=== PATIENT | female | born 1945 | race Caucasian/White ===

== ENCOUNTER → 2019-06-25 | Outpatient (CLI) | payer MEDICARE, OTHER ==
[~2019-06-25] MED LIST: BUPR150T2; CIPR500 PO; CONEST.9; DIOVAN HCT; DIPH50; FLUO20; HYDACE10B PO; HYDACE5; LEVSOD100; NORETHINDRONE; OXYACE7.5T PO; SULTRIDS; WARF7.5; [UNRECOGNIZED DRUG - REMARK]; [UNRECOGNIZED DRUG - REMARK]
== END | disposition home or self-care (01) ==
LOC: LAB EV 11:15 → LAB SHORT 11:15
DX: R30.0 Dysuria (principal); R30.9 Painful micturition, unspecified
CPT/HCPCS: 87077; 87086; 87186

== ENCOUNTER → 2019-08-27 | Outpatient (CLI) | payer MEDICARE, OTHER ==
[2019-08-27 15:19] LABS: Source, Urine Clean Catch
[2019-08-27 16:46] LABS: Bacteria Few /hpf; Red Blood Cells, Urine 0-2 /hpf (0-2); Squamous Epithelial Cells Few /hpf (Few); White Blood Cells, Urine 0-2 /hpf (0-5)
== END | disposition home or self-care (01) ==
LOC: OLS 15:17 → LAB SHORT 15:17
PROVIDERS: Physician Assistant
DX: N39.0 Urinary tract infection, site not specified (principal)
CPT/HCPCS: 81015

== ENCOUNTER 2019-12-10 08:26 | Day surgery (SDC) | payer MEDICARE, OTHER | END 2019-12-10 22:42 | disposition home or self-care (01) | LOC: MOI US 08:26 → MOI MAM 04-11 09:00 | DX: N64.1 Fat necrosis of breast (principal) | CPT/HCPCS: 19083; 19084; 77065; 88305; 88341; 88342; A4648 ==

== ENCOUNTER 2020-12-28 06:37 | Emergency (ER) | payer MEDICARE, OTHER ==
[~2020-12-28] VITALS: Ht 160 cm; Wt 64.4 kg
[2020-12-28 07:27] LABS: BASOPHILS ABSOLUTE AUTO 0.02 K/mm3 (0.00-0.23); BASOPHILS PERCENT AUTO 0 % (0-2); EOSINOPHILS ABSOLUTE AUTO 0.02 K/mm3 (0.00-0.68); EOSINOPHILS PERCENT AUTO 0 % (0-6); Hematocrit 41.9 % (33.0-51.0); Hemoglobin 14.3 g/dL (11.5-16.0); IMMATURE GRAN ABSOLUTE AUTO 0.02 K/mm3 (0.00-0.10); IMMATURE GRAN PERCENT AUTO 0 % (0-1); LYMPHOCYTES ABSOLUTE AUTO 1.09 K/mm3 (0.84-5.20); LYMPHOCYTES PERCENT AUTO 11 % (21-46); MONOCYTES ABSOLUTE AUTO 0.45 K/mm3 (0.16-1.47); MONOCYTES PERCENT AUTO 4 % (4-13); Mean Corpuscular HGB 29.4 pg (26.0-34.0); Mean Corpuscular HGB Conc 34.1 g/dL (31.5-36.5); Mean Corpuscular Volume 86 fL (80-100); Mean Platelet Volume 10.1 fL (9.1-12.4); NEUTROPHILS ABSOLUTE AUTO 8.72 K/mm3 (1.96-9.15); NEUTROPHILS PERCENT AUTO 84 % (41-73); Platelet Count 261 K/mm3 (150-400); RDW Coefficient Variation 13.2 % (11.7-14.2); RDW Standard Deviation 40.7 fL (35.1-46.3); Red Blood Cell Count 4.87 M/mm3 (3.80-5.20); White Blood Cell Count 10.32 K/mm3 (4.00-11.30)
[2020-12-28] MEDS ORDERED: AMLO5 PO (07:34)
[2020-12-28] MEDS ORDERED: Aspir 8181 MG PO (07:35)
[2020-12-28] MEDS ORDERED: ANORO ELLIPTA1 EACH INH (07:36)
[2020-12-28] MEDS ORDERED: OMEP20ER PO (07:37)
[2020-12-28] MEDS ORDERED: Lisinopril-Hct1 EAC4 PO (07:37)
[2020-12-28] MEDS ORDERED: CLOB.05TO (07:37)
[2020-12-28 07:52] LABS: Alanine Aminotransfer (ALT/SGP 44 U/L (12-78); Albumin, Blood 3.7 g/dL (3.4-5.0); Albumin/Globulin Ratio 0.9 (0.8-1.8); Alk Phos 99 U/L (50-136); Anion Gap 10 mmol/L (6-16); Aspartate Aminotrans (AST/SGOT 32 U/L (12-37); Bilirubin, Total 0.6 mg/dL (0.1-1.0); Blood Urea Nitrogen 14 mg/dL (8-24); Bun/Creatinine Ratio 19.8 (12.0-20.0); CO2, Blood 20 mmol/L (21-32); Calcium, Blood 9.4 mg/dL (8.5-10.1); Chloride, Blood 109 mmol/L (98-108); Creatinine, Blood 0.71 mg/dL (0.40-1.00); Globulin, Blood 3.9 g/dL (2.2-4.0); Glomerular Filtration Rate >60 (60-); Glucose, Blood 181 mg/dL (70-99); Potassium, Blood 3.2 mmol/L (3.5-5.5); Sodium, Blood 139 mmol/L (136-145); Total Protein, Blood 7.6 g/dL (6.4-8.2)
[2020-12-28] MEDS ORDERED: LOPE2C PO (08:17)
[2020-12-28] MEDS ORDERED: ONDA4ODT MM (08:17)
== END 2020-12-28 09:10 | disposition home or self-care (01) ==
LOC: ER 06:37
PROVIDERS: Emergency Medicine
DX: K52.9 Noninfective gastroenteritis and colitis, unspecified (principal); E87.6 Hypokalemia; I10 Essential (primary) hypertension; E03.9 Hypothyroidism, unspecified; Z79.899 Other long term (current) drug therapy
CPT/HCPCS: 36415; 80053; 85025; 96374; 96375; 99284-25; A9270; J1885; J2405; J7030

== ENCOUNTER → 2021-01-30 | Outpatient (CLI) | payer MEDICARE, OTHER ==
[~2021-01-30] MED LIST changes: +AMLO5 PO; +ANORO ELLIPTA1 EACH INH; +Aspir 8181 MG PO; +CLOB.05TO; +LOPE2C PO; +Lisinopril-Hct1 EAC4 PO; +OMEP20ER PO; +ONDA4ODT MM
[2021-02-05 17:10] LABS: HPV 16 Negative (Negative); HPV 18 Negative (Negative); HPV OTHER HR TYPES Negative (Negative)
== END | disposition home or self-care (01) ==
LOC: LAB 11:24 → LAB SHORT 11:24
PROVIDERS: Obstetrics & Gynecology
DX: Z01.419 Encounter for gynecological examination (general) (routine) without abnormal findings (principal); M87.9 Osteonecrosis, unspecified
CPT/HCPCS: 87624; G0123

== ENCOUNTER → 2021-03-21 | Outpatient (CLI) | payer MEDICARE, OTHER ==
[2021-03-21 12:32] LABS: Protein, Urine Quantitative <5.0 mg/dL (0.0-11.9)
== END | disposition home or self-care (01) ==
LOC: LAB 10:55 → LAB SHORT 10:55
PROVIDERS: Internal Medicine
DX: I10 Essential (primary) hypertension (principal)
CPT/HCPCS: 81050; 84156

== ENCOUNTER 2024-05-07 16:18 | Inpatient (IN) | payer MEDICARE ==
[~2024-05-07] VITALS: Ht 157.5 cm; Wt 62.2 kg
[~2024-05-07 16:18] MED LIST changes: +FLUO10 PO; +LEVSOD100 PO
[2024-05-07] MEDS ORDERED: Ondansetron HCl 2 MG / ML 2ML Vial IV PRN (17:20)
[2024-05-07 17:46] LABS: Albumin, Blood 3.6 g/dL (3.4-5.0); Albumin/Globulin Ratio 0.9 (0.8-1.8); Bilirubin, Total 0.6 mg/dL (0.1-1.0); Bun/Creatinine Ratio 23.4 (12.0-20.0); Calcium, Blood 9.3 mg/dL (8.5-10.1); Creatinine, Blood 0.6 mg/dL (0.40-1.00); Globulin, Blood 3.9 g/dL (2.2-4.0); Potassium, Blood 2.8 mmol/L (3.5-5.5); Total Protein, Blood 7.5 g/dL (6.4-8.2)
[2024-05-07] MEDS ORDERED: Potassium Chloride 20 MEQ TabCR PO ONE (17:55)
[2024-05-07] MEDS ORDERED: Potassium Chl 20MEQ/Water100ML 100 ML IV ONE (17:55)
[2024-05-07] MEDS ORDERED: LORazepam 2 MG/ML 1ML Injection IV ONE (17:55)
[2024-05-07] MEDS ORDERED: Mag Sulfate 1 GM/D5% 100ML 100 ML IV ONE (18:00)
[2024-05-07 18:02] LABS: BASOPHILS ABSOLUTE AUTO 0.02 K/mm3 (0.00-0.23); BASOPHILS PERCENT AUTO 0 % (0-2); EOSINOPHILS ABSOLUTE AUTO 0.03 K/mm3 (0.00-0.68); EOSINOPHILS PERCENT AUTO 0 % (0-6); Hematocrit 39.2 % (33.0-51.0); Hemoglobin 13.5 g/dL (11.5-16.0); IMMATURE GRAN ABSOLUTE AUTO 0.04 K/mm3 (0.00-0.10); IMMATURE GRAN PERCENT AUTO 0 % (0-1); LYMPHOCYTES ABSOLUTE AUTO 2.09 K/mm3 (0.84-5.20); LYMPHOCYTES PERCENT AUTO 22 % (21-46); MONOCYTES ABSOLUTE AUTO 0.57 K/mm3 (0.16-1.47); MONOCYTES PERCENT AUTO 6 % (4-13); Mean Corpuscular HGB 29.7 pg (26.0-34.0); Mean Corpuscular HGB Conc 34.4 g/dL (31.5-36.5); Mean Corpuscular Volume 86 fL (80-100); Mean Platelet Volume 10.6 fL (9.1-12.4); NEUTROPHILS ABSOLUTE AUTO 6.73 K/mm3 (1.96-9.15); NEUTROPHILS PERCENT AUTO 71 % (41-73); Platelet Count 304 K/mm3 (150-400); RDW Coefficient Variation 14.3 % (11.7-14.2); RDW Standard Deviation 44.5 fL (35.1-46.3); Red Blood Cell Count 4.54 M/mm3 (3.80-5.20); White Blood Cell Count 9.48 K/mm3 (4.00-11.30)
[2024-05-07] MEDS ORDERED: Prochlorperazine Edisylate 10 mg Vial IV ONE (19:35)
[2024-05-07] MEDS ORDERED: Mag Sulfate 1 GM/D5% 100ML 100 ML IV STA (20:45)
[2024-05-07] MEDS ORDERED: Potassium Chl 20MEQ/Water100ML 100 ML IV SCH (20:50)
[2024-05-07] MEDS ORDERED: NS 1,000 ML IV SCH (21:05)
[2024-05-07] MEDS ORDERED: Metoprolol Tartrate 1 MG/ML 5 ML VIAL IV ONE (21:05)
[2024-05-07] MEDS ORDERED: FLU VACC TS2024-25(6MOS UP)/PF 45 MCG/0.5 ML SYRINGE IM SCH (22:25)
[2024-05-07] MEDS ORDERED: Enoxaparin 40 MG/0.4 ML SYR SC SCH (23:00)
[2024-05-08 00:33] VITALS: BP 148/63
[2024-05-08] MEDS ORDERED: Prinivil10 MG PO (00:39)
[2024-05-08] MEDS ORDERED: TRAZ100 PO (00:40)
[2024-05-08] MEDS ORDERED: HYDSUL200 PO (00:41)
--- NOTE | 2024-05-08 01:48 | NUR ---
ARRIVAL TO PCU AFTER RECEIVING REPORT FROM ED RN, PATIENT TRANSFERRED TO PCU AT APPROX 0015. PATIENT TRANSFERRED TO BED VIA SLIDER SHEET, IS BED MOBILE. ASSISTS WITH TURNS AND REPOSITIONS HERSELF WITH MINIMAL TO NO ASSIST FROM STAFF. AMBULATORY AT BASELINE. ANSWERS ORIENTATION QUESTIONS. PERRLA. MOVES ALL EXTREMITIES EQUALLY. TELEMETRY SHOWING SINUS 60s. BP STABLE, SBP 140s. DENIES CHEST PAIN, PRESSURE. ON 2L VIA NC, SATs >90%. RR EVEN, UNLABORED. DENIES SHORTNESS OF BREATH. DOES REPORT MILD NAUSEA. NAUSEA/VOMITING X2 WEEKS - UNABLE TO TOLERATE PO INTAKE. REPORTS >10LB WEIGHT LOSS. ABD SOFT, NONTENDER. HYPOACTIVE BOWEL TONES. CALL LIGHT IN REACH.
[2024-05-08] MEDS ORDERED: Loperamide HCl 2 MG Cap PO PRN (02:05)
[2024-05-08] MEDS ORDERED: Bismuth Subsalicylate 262 MG Chew PO PRN (02:35)
[2024-05-08 03:16] VITALS: BP 92/71
[2024-05-08 03:27] VITALS: BP 125/66
[2024-05-08 03:37] LABS: Source, Urine Clean Catch
[2024-05-08 03:43] LABS: Bilirubin, Urine Neg (Neg); Blood, Urine 1+ (Neg); Glucose Qualitative, Urine 2+ (Neg); Ketones, Urine 2+ (Neg); Leukocyte Esterase, Urine 2+ (Neg); Nitrite, Urine Neg (Neg); Protein, Urine 2+ (Neg); Urobilinogen, Urine NORM (Normal)
[2024-05-08 03:55] LABS: Appearance, Urine Clear (Clear); Color, Urine Yellow (P-Yellow)
[2024-05-08 03:56] LABS: Amorphous Light (0-Heavy); Bacteria Few /hpf; Mucus Light (0-Heavy); Red Blood Cells, Urine 0-2 /hpf (0-2); Squamous Epithelial Cells Few /hpf (Few); White Blood Cells, Urine 25-50 /hpf (0-5)
[2024-05-08 05:10] LABS: BASOPHILS ABSOLUTE AUTO 0.01 K/mm3 (0.00-0.23); BASOPHILS PERCENT AUTO 0 % (0-2); EOSINOPHILS PERCENT AUTO 0 % (0-6); Hematocrit 37.4 % (33.0-51.0); Hemoglobin 12.7 g/dL (11.5-16.0); IMMATURE GRAN ABSOLUTE AUTO 0.04 K/mm3 (0.00-0.10); IMMATURE GRAN PERCENT AUTO 0 % (0-1); LYMPHOCYTES ABSOLUTE AUTO 1.84 K/mm3 (0.84-5.20); LYMPHOCYTES PERCENT AUTO 16 % (21-46); MONOCYTES ABSOLUTE AUTO 0.86 K/mm3 (0.16-1.47); MONOCYTES PERCENT AUTO 8 % (4-13); Mean Corpuscular HGB 29.7 pg (26.0-34.0); Mean Corpuscular Volume 87 fL (80-100); Mean Platelet Volume 11.2 fL (9.1-12.4); NEUTROPHILS ABSOLUTE AUTO 8.47 K/mm3 (1.96-9.15); NEUTROPHILS PERCENT AUTO 75 % (41-73); Platelet Count 241 K/mm3 (150-400); RDW Coefficient Variation 14.5 % (11.7-14.2); RDW Standard Deviation 45.1 fL (35.1-46.3); Red Blood Cell Count 4.28 M/mm3 (3.80-5.20); White Blood Cell Count 11.22 K/mm3 (4.00-11.30)
--- NOTE | 2024-05-08 05:59 | NUR ---
SHIFT SUMMARY NO ACUTE EVENTS SINCE ARRIVAL TO PCU. PATIENT SLEPT T/O, EASILY AROUSABLE WITH VERBAL STIMULI. TELEMETRY SHOWING SINUS, SINUS LEE 50s-70s. BP STABLE, SBP 90s-140s. MAP >65. DENIES CHEST PAIN, PRESSURE. TITRATED TO 1L VIA NC, SATs >90%. PATIENT DOES DESAT <88% ON ROOM AIR WITH SLEEP. MILD SHORTNESS OF BREATH WITH MOBILITY, EASES AT REST. NAUSEA REMAINS TOLERABLE T/O. DENIES ABD PAIN. PUREWICK REMOVED. UP TO BSC WITH SBA TO VOID. NO EPISODES OF LOOSE STOOL. REPOSITIONS HERSELF INDEPENDENTLY IN BED. MD CORTEZ CONTACTED NOTE STATES BICARB GTT IN PLAN OF CARE - GTT NOT ORDERED. RECEIVED ORDER FOR ONE TIME DOSE OF SODIUM BICARB AT 75HR/ML. WILL ADMINISTER PER EMAR. AWAITING CHEMISTRY LAB RESULTS AT THIS TIME. CALL LIGHT IN REACH. WILL CONTINUE TO MONITOR AND REPORT TO ONCOMING RN.
[2024-05-08 06:00] LABS: Albumin, Blood 3.2 g/dL (3.4-5.0); Albumin/Globulin Ratio 0.9 (0.8-1.8); Bilirubin, Total 0.6 mg/dL (0.1-1.0); Bun/Creatinine Ratio 18.3 (12.0-20.0); Calcium, Blood 8.6 mg/dL (8.5-10.1); Creatinine, Blood 0.49 mg/dL (0.40-1.00); Globulin, Blood 3.7 g/dL (2.2-4.0); Potassium, Blood 4.6 mmol/L (3.5-5.5); Total Protein, Blood 6.9 g/dL (6.4-8.2)
[2024-05-08] MEDS ORDERED: Sodium Bicarb 8.4% Inj 50 MEQ in NS 1,000 ML IV ONE (06:00)
[2024-05-08] MEDS ORDERED: Sodium Bicarb 8.4% Inj 100 MEQ in Sodium Chloride 0.45% 1,000 ML IV ONE (06:15)
[2024-05-08] MEDS ORDERED: Clobetasol Prop 0.05% Cream 15 gm TOP SCH (06:25)
[2024-05-08] MEDS ORDERED: Insulin Human Lispro 100 Units/ML 3ML Syringe SC SCH (07:30)
[2024-05-08 08:36] VITALS: BP 146/67
--- NOTE | 2024-05-08 08:52 | NUR ---
NURSING PCU DAYSHIFT: Assumed care of pt at approx 0700. A/O, very pleasant, cooperative of care. Mildly [place], able to understand instructions and communicate needs. Mild general weakness, able to reposition and ambulate w/minimal assistance. Skin pale and fragile, scattered bruising to UE's, redness to upper chest and neck which pt states is r/t lupus. Denies any pain/discomfort at rest. Tele in place, no c/o CP/pressure, NSR HR 70's, SBP 140's, no noted edema. L/S w/crackles to mid/lower lobes, denies dyspnea, O2 sat mid 90's on 1L NC, no noted cough. Abd SNT, denies nausea at this time, voiding w/o difficulty per pt. PIV x2, sodium bicarb infusing at 75mls/hr upon initial assessment, abx as ordered. No s/s of acute distress this a.m. Seen by PMD, awaiting new d/o, plan for abd CT, ok'd for CL diet, bicard gtt dc'd d/t l/s, changed to medical status w/tele. Educated on deep breathing exercises, verbalized and demonstrated understanding. Pt currently visiting w/family at [place], denies any current needs or questions regarding plan of care. Call light in reach, cont to monitor for changes.
[2024-05-08] MEDS ORDERED: AmLODIPine Besylate 5 MG Tab PO SCH (09:00)
[2024-05-08] MEDS ORDERED: Levothyroxine Sodium 0.05 MG Tab PO SCH (09:00)
[2024-05-08] MEDS ORDERED: Lisinopril 20 MG Tab PO SCH (09:00)
[2024-05-08] MEDS ORDERED: CefTRIAXone Sodium 1,000 MG in NS 100 ML IV SCH (09:00)
[2024-05-08] MEDS ORDERED: Omeprazole 20 MG CapCR PO SCH (09:00)
[2024-05-08] MEDS ORDERED: Lactobacil 2-S.Thermo-Bifido 1 1 Cap PO SCH (09:00)
[2024-05-08] MEDS ORDERED: Clobetasol Prop 0.05% Cream 15 gm TOP PRN (09:35)
[2024-05-08 15:10] VITALS: BP 135/65
[2024-05-08] MEDS ORDERED: Thiamine HCl 100 MG Tab PO SCH (17:15)
--- NOTE | 2024-05-08 17:44 | NUR ---
NURSING PCU DAYSHIFT SUMMARY: Pt has continued to do well t/o the shift. OOB to shower w/staff assist, tolerated well. FL diet for lunch and heart healthy diet for supper, no N/V/D noted. Pt states feeling much improved since admission. Remains NSR w/no cardiac events. Abd CT completed, results reviewed. Pt denies any current needs or questions regarding plan of care. Call light in reach, monitor until rpt is given to NOC RN.
[2024-05-08 20:08] VITALS: BP 152/69
[2024-05-08] MEDS ORDERED: TraZODone HCl 100 MG Tab PO SCH (21:00)
[2024-05-09 04:19] VITALS: BP 144/44
[2024-05-09 04:29] LABS: BASOPHILS ABSOLUTE AUTO 0.02 K/mm3 (0.00-0.23); BASOPHILS PERCENT AUTO 0 % (0-2); EOSINOPHILS PERCENT AUTO 2 % (0-6); Hematocrit 38.3 % (33.0-51.0); Hemoglobin 12.8 g/dL (11.5-16.0); IMMATURE GRAN ABSOLUTE AUTO 0.01 K/mm3 (0.00-0.10); IMMATURE GRAN PERCENT AUTO 0 % (0-1); LYMPHOCYTES ABSOLUTE AUTO 4.18 K/mm3 (0.84-5.20); LYMPHOCYTES PERCENT AUTO 41 % (21-46); MONOCYTES PERCENT AUTO 9 % (4-13); Mean Corpuscular HGB 29.6 pg (26.0-34.0); Mean Corpuscular HGB Conc 33.4 g/dL (31.5-36.5); Mean Corpuscular Volume 89 fL (80-100); Mean Platelet Volume 11.6 fL (9.1-12.4); NEUTROPHILS ABSOLUTE AUTO 4.79 K/mm3 (1.96-9.15); NEUTROPHILS PERCENT AUTO 47 % (41-73); Platelet Count 236 K/mm3 (150-400); RDW Coefficient Variation 15.1 % (11.7-14.2); RDW Standard Deviation 47.1 fL (35.1-46.3); Red Blood Cell Count 4.33 M/mm3 (3.80-5.20)
--- NOTE | 2024-05-09 04:31 | NUR ---
SHIFT SUMMARY. SHIFT HAS BEEN UNREMARKABLE. PT AOX4, PLEASANT, COOPERATIVE WITH CARE, CALLS APPROPRIATELY, ABLE TO MAKE NEEDS KNOWN. HAS RESTED COMFORTABLY THROUGHOUT MOST OF SHIFT. INDEPENDENT TO BATHROOM AND CALLS TO LET STAFF KNOW WHEN URINAL NEEDS EMPTIED. HAS BEEN RUNNING SINUS THROUGHOUT SHIFT, 60s AT THIS TIME. VITALS HAVE REMAINED STABLE THROUGHOUT SHIFT. CONTINUES TO DENY PAIN. MINIMAL PO INTAKE THIS SHIFT. BED LOCKED IN LOWEST POSITION. CALL LIGHT LEFT WITHIN REACH. CONTINUING TO MONITOR.
[2024-05-09 07:14] LABS: Magnesium, Blood 2.2 mg/dL (1.6-2.4)
[2024-05-09 07:38] LABS: Albumin, Blood 2.9 g/dL (3.4-5.0); Albumin/Globulin Ratio 0.8 (0.8-1.8); Bilirubin, Total 0.5 mg/dL (0.1-1.0); Bun/Creatinine Ratio 20.2 (12.0-20.0); Calcium, Blood 8.4 mg/dL (8.5-10.1); Creatinine, Blood 0.59 mg/dL (0.40-1.00); Globulin, Blood 3.5 g/dL (2.2-4.0); Phosphorus, Blood 2.5 mg/dL (2.5-4.9); Potassium, Blood 3.8 mmol/L (3.5-5.5); Total Protein, Blood 6.4 g/dL (6.4-8.2)
[2024-05-09 08:06] VITALS: BP 160/64
--- NOTE | 2024-05-09 12:01 | NUR ---
SUMMARY PT A/O X4, DENIES PAIN. PT AMBULATES TO BATHROOM INDEP AND AROUND ROOM INDEP. HC PLACED ZIO MONITOR THIS AM. NO ARHYTHMIAS ON THE MONITOR THIS AM. DISCHARGE INSTRUCTIONS GONE OVER WITH PT. NO SIGN OF DISTRESS. PT AMBULATES SELF TO CAR WITH SISTER AND RN ACCOMPANYING.
== END 2024-05-09 12:15 | disposition home or self-care (01) | DRG 309 ==
LOC: ER 16:18 → PCU 16:19
PROVIDERS: Emergency Medicine; Internal Medicine; Nurse Practitioner Acute Care; ADMIT Internal Medicine
DX: I47.10 Supraventricular tachycardia, unspecified (principal); N39.0 Urinary tract infection, site not specified; F41.9 Anxiety disorder, unspecified; E03.9 Hypothyroidism, unspecified; M32.9 Systemic lupus erythematosus, unspecified; I10 Essential (primary) hypertension; E83.42 Hypomagnesemia; E87.6 Hypokalemia; F32.A Depression, unspecified; E86.0 Dehydration; G47.00 Insomnia, unspecified; R10.13 Epigastric pain; E88.89 Other specified metabolic disorders; T73.0XXA Starvation, initial encounter; K21.9 Gastro-esophageal reflux disease without esophagitis; Z79.82 Long term (current) use of aspirin; Z79.890 Hormone replacement therapy; Z79.899 Other long term (current) drug therapy; R94.31 Abnormal electrocardiogram [ECG] [EKG]; Z87.891 Personal history of nicotine dependence
CPT/HCPCS: 36415; 71046; 74177; 80053; 81001; 82010; 82947; 83605; 83690; 83735; 83880; 84100; 84443; 84484; 85025; 93005; 93010; 93246; 93306; 96365; 96366; 96367; 96368; 96372; 96375; 96376; 99285-25; A9270; G0378; J0282; J0696; J0780; J1650; J2060; J2405; J3475; J3480; J7030; J7060; Q9967

== ENCOUNTER 2024-05-23 09:03 | Emergency (ER) | payer MEDICARE ==
[~2024-05-23] VITALS: Ht 157.5 cm; Wt 61.7 kg
[~2024-05-23 09:03] MED LIST changes: -CLOB.05TO; +CLOB.05TO TOP; +EUTHYROX50 MCG PO; +HYDSUL200 PO; -LEVSOD100 PO; +TRAZ100 PO; +ZESTRIL40 M1 PO
[2024-05-23] MEDS ORDERED: Droperidol 5 mg/2 ml Vial IV ONE (10:10)
[2024-05-23 10:29] LABS: BASOPHILS ABSOLUTE AUTO 0.02 K/mm3 (0.00-0.23); BASOPHILS PERCENT AUTO 0 % (0-2); EOSINOPHILS ABSOLUTE AUTO 0.13 K/mm3 (0.00-0.68); EOSINOPHILS PERCENT AUTO 1 % (0-6); Hematocrit 39.3 % (33.0-51.0); Hemoglobin 13.3 g/dL (11.5-16.0); IMMATURE GRAN ABSOLUTE AUTO 0.04 K/mm3 (0.00-0.10); IMMATURE GRAN PERCENT AUTO 0 % (0-1); LYMPHOCYTES ABSOLUTE AUTO 1.73 K/mm3 (0.84-5.20); LYMPHOCYTES PERCENT AUTO 15 % (21-46); MONOCYTES ABSOLUTE AUTO 0.48 K/mm3 (0.16-1.47); MONOCYTES PERCENT AUTO 4 % (4-13); Mean Corpuscular HGB Conc 33.8 g/dL (31.5-36.5); Mean Corpuscular Volume 89 fL (80-100); Mean Platelet Volume 10.5 fL (9.1-12.4); NEUTROPHILS ABSOLUTE AUTO 8.92 K/mm3 (1.96-9.15); NEUTROPHILS PERCENT AUTO 79 % (41-73); Platelet Count 324 K/mm3 (150-400); RDW Coefficient Variation 14.9 % (11.7-14.2); Red Blood Cell Count 4.43 M/mm3 (3.80-5.20); White Blood Cell Count 11.32 K/mm3 (4.00-11.30)
[2024-05-23 10:31] LABS: Albumin, Blood 3.5 g/dL (3.4-5.0); Albumin/Globulin Ratio 0.9 (0.8-1.8); Bilirubin, Total 0.6 mg/dL (0.1-1.0); Bun/Creatinine Ratio 23.2 (12.0-20.0); Creatinine, Blood 0.78 mg/dL (0.40-1.00); Globulin, Blood 3.7 g/dL (2.2-4.0); Potassium, Blood 3.7 mmol/L (3.5-5.5); Total Protein, Blood 7.2 g/dL (6.4-8.2)
[2024-05-23] MEDS ORDERED: LORazepam 2 MG/ML 1ML Injection IV ONE (11:10)
[2024-05-23] MEDS ORDERED: NS 1,000 ML IV SCH (11:20)
[2024-05-23 11:52] LABS: Magnesium, Blood 1.7 mg/dL (1.6-2.4); Phosphorus, Blood 1.4 mg/dL (2.5-4.9)
[2024-05-23] MEDS ORDERED: Metoprolol Tartrate 1 MG/ML 5 ML VIAL IV ONE (12:30)
[2024-05-23] MEDS ORDERED: Sodium Phosphate 30 MM in Dextrose 5% 500 ML IV ONE (13:15)
[2024-05-23 13:16] LABS: Bicarbonate Venous 22.1 mmol/L (24.0-30.0); PCO2 Venous 34.3 mmHg (38-42)
[2024-05-23 13:17] LABS: Base Excess Venous -3.5 mmol/L
[2024-05-23 15:03] LABS: Source, Urine Clean Catch
[2024-05-23 15:05] LABS: Appearance, Urine Clear (Clear); Bilirubin, Urine Neg (Neg); Blood, Urine Neg (Neg); Color, Urine Yellow (P-Yellow); Glucose Qualitative, Urine Neg (Neg); Ketones, Urine 3+ (Neg); Leukocyte Esterase, Urine Neg (Neg); Nitrite, Urine Neg (Neg); Protein, Urine 2+ (Neg); Specific Gravity, Urine 1.025 (1.003-1.022); Urobilinogen, Urine NORM (Normal)
[2024-05-23 15:30] LABS: Bacteria Many /hpf; Mucus Light (0-Heavy); Red Blood Cells, Urine 0-2 /hpf (0-2); Squamous Epithelial Cells Few /hpf (Few)
[2024-05-23 15:34] LABS: Influenza A, PCR NEGATIVE (NEGATIVE); Influenza B, PCR NEGATIVE (NEGATIVE); Resp Syncytial Virus, PCR NEGATIVE (NEGATIVE); SARS-Cov-2 (COVID-19) PCR, MMC NEGATIVE (NEGATIVE)
[2024-05-23 20:18] LABS: Bun/Creatinine Ratio 22.3 (12.0-20.0); Calcium, Blood 8.3 mg/dL (8.5-10.1); Creatinine, Blood 0.58 mg/dL (0.40-1.00); Potassium, Blood 3.3 mmol/L (3.5-5.5)
[2024-05-23 21:00] VITALS: BP 137/66
== END 2024-05-23 21:14 ==
LOC: ER 09:03
PROVIDERS: Physician Assistant; Student in an Organized Health Care Education/Training Program
DX: R11.2 Nausea with vomiting, unspecified (principal); R10.30 Lower abdominal pain, unspecified; R06.89 Other abnormalities of breathing; E83.39 Other disorders of phosphorus metabolism; I10 Essential (primary) hypertension; J44.9 Chronic obstructive pulmonary disease, unspecified; Z88.8 Allergy status to other drugs, medicaments and biological substances
CPT/HCPCS: 0241U; 71046; 74177; 80048; 80053; 81001; 82010; 82375; 82803; 83605; 83735; 84100; 85025; 87086; 93005; 93010; 96361; 96365-59; 96366; 96375; 99285-25; J1790; J2060; J7030; J7060; Q9967

== ENCOUNTER 2024-05-25 05:45 | Observation (INO) | payer MEDICARE ==
[~2024-05-25] VITALS: Ht 162.6 cm; Wt 61.5 kg
[2024-05-25] MEDS ORDERED: Ondansetron HCl 2 MG / ML 2ML Vial IV PRN (06:00)
[2024-05-25] MEDS ORDERED: Magnesium Sulf 2 GM/Water 50ML 50 ML IV ONE (06:45)
[2024-05-25] MEDS ORDERED: LORazepam 2 MG/ML 1ML Injection IV ONE (06:45)
[2024-05-25 06:50] LABS: BASOPHILS ABSOLUTE AUTO 0.04 K/mm3 (0.00-0.23); BASOPHILS PERCENT AUTO 0 % (0-2); EOSINOPHILS ABSOLUTE AUTO 0.24 K/mm3 (0.00-0.68); EOSINOPHILS PERCENT AUTO 2 % (0-6); Hematocrit 39.8 % (33.0-51.0); Hemoglobin 13.6 g/dL (11.5-16.0); IMMATURE GRAN ABSOLUTE AUTO 0.05 K/mm3 (0.00-0.10); IMMATURE GRAN PERCENT AUTO 0 % (0-1); LYMPHOCYTES ABSOLUTE AUTO 2.83 K/mm3 (0.84-5.20); LYMPHOCYTES PERCENT AUTO 20 % (21-46); MONOCYTES ABSOLUTE AUTO 0.73 K/mm3 (0.16-1.47); MONOCYTES PERCENT AUTO 5 % (4-13); Mean Corpuscular HGB Conc 34.2 g/dL (31.5-36.5); Mean Corpuscular Volume 88 fL (80-100); Mean Platelet Volume 10.4 fL (9.1-12.4); NEUTROPHILS ABSOLUTE AUTO 10.05 K/mm3 (1.96-9.15); NEUTROPHILS PERCENT AUTO 72 % (41-73); Platelet Count 303 K/mm3 (150-400); RDW Coefficient Variation 15.2 % (11.7-14.2); RDW Standard Deviation 47.8 fL (35.1-46.3); Red Blood Cell Count 4.54 M/mm3 (3.80-5.20); White Blood Cell Count 13.94 K/mm3 (4.00-11.30)
[2024-05-25] MEDS ORDERED: D5W-NS 1,000 ML IV SCH (06:55)
[2024-05-25 07:11] LABS: Albumin, Blood 3.6 g/dL (3.4-5.0); Bilirubin, Total 0.6 mg/dL (0.1-1.0); Bun/Creatinine Ratio 20.4 (12.0-20.0); Calcium, Blood 9.3 mg/dL (8.5-10.1); Creatinine, Blood 0.64 mg/dL (0.40-1.00); Globulin, Blood 3.6 g/dL (2.2-4.0); Total Protein, Blood 7.2 g/dL (6.4-8.2)
[2024-05-25] MEDS ORDERED: Potassium Chl 20MEQ/Water100ML 200 ML IV ONE (07:25)
[2024-05-25 07:39] LABS: Base Excess Venous 0 mmol/L; Bicarbonate Venous 25.6 mmol/L (24.0-30.0); PCO2 Venous 25.9 mmHg (38-42); pH Blood Venous 7.54 (7.34-7.37)
[2024-05-25 07:43] LABS: Magnesium, Blood 1.6 mg/dL (1.6-2.4)
[2024-05-25 07:45] LABS: Phosphorus, Blood 0.7 mg/dL (2.5-4.9)
[2024-05-25] MEDS ORDERED: Famotidine 10 MG/ML 2ML Vial IV ONE (07:45)
[2024-05-25] MEDS ORDERED: Mag Hydrox/AL Hydrox/Simeth 30 ML UDC PO ONE (07:45)
[2024-05-25] MEDS ORDERED: Sodium Phosphate 30 MM in Dextrose 5% 500 ML IV ONE (07:50)
[2024-05-25] MEDS ORDERED: FLU VACC TS2024-25(6MOS UP)/PF 45 MCG/0.5 ML SYRINGE IM SCH ×2 (08:45→10:50)
[2024-05-25] MEDS ORDERED: LORazepam 0.5 MG Tab PO ONE (10:20)
[2024-05-25] MEDS ORDERED: D5W-1/2NS 1,000 ML IV SCH (10:50)
[2024-05-25 11:40] LABS: Bun/Creatinine Ratio 19.7 (12.0-20.0); Creatinine, Blood 0.51 mg/dL (0.40-1.00); Potassium, Blood 3.2 mmol/L (3.5-5.5)
[2024-05-25] MEDS ORDERED: Potassium Chloride 20 MEQ TabCR PO SCH (14:00)
[2024-05-25] MEDS ORDERED: CALCIUM GLUC IN NACL, ISO-OSM 50 ML IV ONE (14:25)
[2024-05-25] MEDS ORDERED: INCRUSE ELLIPTA INH (14:38)
[2024-05-25 14:42] LABS: Bun/Creatinine Ratio 13.4 (12.0-20.0); Calcium, Blood 7.7 mg/dL (8.5-10.1); Creatinine, Blood 0.52 mg/dL (0.40-1.00); Magnesium, Blood 2.2 mg/dL (1.6-2.4); Phosphorus, Blood 3.9 mg/dL (2.5-4.9)
[2024-05-25 16:42] VITALS: BP 170/73
[2024-05-25] MEDS ORDERED: LORazepam 0.5 MG Tab PO PRN (17:15)
[2024-05-25 17:27] LABS: Source, Urine Clean Catch
--- NOTE | 2024-05-25 17:38 | NUR ---
SHIFT SUMMARY PT ADMITTED FROM ER THIS SHIFT AROUND 1630 FOR INTRACTABLE NAUSE AND VOMITING. PT NOTED TO BE A&OX 4. SBA WITH AMBLUATION. PT NOTED TO BE CONT OF BOWEL AND BLADDER. URINE SAMPLE COLLECTED AND SENT TO LAB. STILL NEEDING TO COLLECT STOOL SAMPLE FOR GI PANEL. PT NOTED TO BE IN CONTACT PERCAUTIONS AWAITING RULE OUT OF GI PANEL FOR CDIFF. PT NOTED TO HAVE A SCATTERED RED SPOTS TO BACK AND BLE PT STATES ITS FROM HER LUPUS AND IS NORMAL FOR HER. PT IS A CLEAR LIQUID DIET. PT NOTED TO BE NAUSEA PRN ATIVAN ADMINISTERED AROUND 1730. PT AND SISTER AT BEDSIDE. PT HAS NO QUESTIONS OR CONCERNS NOTED AT THIS TIME.
[2024-05-25 17:44] LABS: Appearance, Urine Clear (Clear); Bilirubin, Urine Neg (Neg); Blood, Urine 1+ (Neg); Glucose Qualitative, Urine Neg (Neg); Ketones, Urine Neg (Neg); Leukocyte Esterase, Urine Neg (Neg); Nitrite, Urine Neg (Neg); Protein, Urine 1+ (Neg); Urobilinogen, Urine NORM (Normal)
[2024-05-25 17:47] LABS: Color, Urine Pale Yellow (P-Yellow)
[2024-05-25 17:54] LABS: Bacteria Rare /hpf; Red Blood Cells, Urine 0-2 /hpf (0-2); Squamous Epithelial Cells Rare /hpf (Few); White Blood Cells, Urine 0-2 /hpf (0-5)
--- NOTE | 2024-05-25 17:56 | NUR ---
CALL PLACED TO DR HADDAD WITH NO ANSWER. CALL PLACED TO CAITLYN WITH NO ANSWER AND LEFT A VOICEMAIL TO CALL BACK RE: PT HEART RATE NOTED TO JUMP UP TO THE 150S. AWAITING CALL BACK.
[2024-05-25] MEDS ORDERED: Metoprolol Tartrate 1 MG/ML 5 ML VIAL IV ONE (18:05)
--- NOTE | 2024-05-25 18:06 | NUR ---
DR CORTEZ CALLED BACK AND GAVE AN ORDER FOR IV LOPRESSOR 5MG X1 DOSE.
[2024-05-25] MEDS ORDERED: FLUoxetine HCL 20 MG CAP PO SCH (21:00)
[2024-05-25 21:09] VITALS: BP 121/62
--- NOTE | 2024-05-25 23:33 | NUR ---
PT SEEMS MORE CONFUSED THROUGH OUT THE SHIFT AND NOT VERY STEADY ON HER FEET BUT "WOBBLY" PT DOES NOT USE HER CALL LIGHT WHEN SHE NEEDS TO USE THE RESTROOM AND GETS OUT OF BED QUICKLY, BED ALARM IS SET. PT HAS USED THE BSC MULTIPLE TIMES TONIGHT AND HAS HAD PLENTY OF SMALL LIQUID BOWEL MOVEMENTS. STOOL SAMPLE HAS BEEN COLLECTED AND SENT TO LAB. PT HAS REFUSED HER PROZAC (SEE eMAR) DUE TO THE PATIENT SAYING THAT MEDICINE IS THE WHOLE REASON SHE IS SICK. PT IS REQUESTING HER NEXT DOSE OF ATIVAN SOON IT BECOMES AVAILABLE. PT HAS CALL LIGHT IN REACH.
[2024-05-26 00:31] LABS: Adenovirus F 40/41 Not Detected (NOT DETECT); Astrovirus Not Detected (NOT DETECT); Campylobacter Sp Not Detected (NOT DETECT); Cryptosporidium Not Detected (NOT DETECT); Cyclospora Cayetanensis Not Detected (NOT DETECT); E. Coli O157 Not Detected (NOT DETECT); Entamoeba Histolytica Not Detected (NOT DETECT); Enteroaggregative E. coli-EAEC Not Detected (NOT DETECT); Enteropathogenic E. coli-EPEC Not Detected (NOT DETECT); Enterotoxigenic E. coli-ETEC Not Detected (NOT DETECT); Giardia Lamblia Not Detected (NOT DETECT); Norovirus GI/GII Not Detected (NOT DETECT); Plesiomonas Shigelloides Not Detected (NOT DETECT); Rotavirus A Not Detected (NOT DETECT); Salmonella Sp Not Detected (NOT DETECT); Sapovirus Not Detected (NOT DETECT); Shiga Toxin-prod E. coli-STEC Not Detected (NOT DETECT); Shigella/Enteroin E. coli-EIEC Not Detected (NOT DETECT); Vibrio Cholerae Not Detected (NOT DETECT); Vibrio Sp Not Detected (NOT DETECT); Yersinia Enterocolitica Not Detected (NOT DETECT)
--- NOTE | 2024-05-26 04:28 | NUR ---
SHIFT SUMMARY: PT IS A 79 YO FULL CODE. PT IS ADMITTED FOR NAUSEA/VOMITING AND ELECTROLYTE IMBALANCE.AT BEGINNING OF SHIFT PT'S BAHMAN WAS IN THE ROOM BUT LEFT SHORTLY AFTER REPORT. A STOOL SAMPLE WAS SENT TO RULE OUT C-DIFF AND RESULTS WERE NEGATIVE. PT HAS BED ALARM SET BECAUSE SHE HAS BEEN CONFUSED THROUGHOUT THE NIGHT AND IS VERY IMPULSIVE AND WONT USE CALL LIGHT. PT IS NOT STEADY ON HER FEET, PT USED BSC OFTEN AND HAS WATERY SMALL STOOLS-PT IS CONTINENT TO BOWEL/URINE. PT HAS BEEN GIVEN ATIVAN NEEDED. PT IS ON CONTINUOUS D5-1/2 NS (SEE eMAR). PT TAKES MEDS WHOLE W/WATER. PT REFUSED HER PROZAC BECAUSE SHE SAID ITS WHAT CAUSED HER TO BE HERE IN THE FIRST PLACE. PT IS ON TELE AND IS AFIB IN THE 80'S. PT IS PLEASANT AND REDIRECTS WELL. CALL LIGHT IN REACH.
[2024-05-26 05:26] VITALS: BP 170/88
[2024-05-26] MEDS ORDERED: Omeprazole 20 MG CapCR PO SCH (06:00)
[2024-05-26] MEDS ORDERED: Levothyroxine Sodium 0.05 MG Tab PO SCH (06:00)
--- NOTE | 2024-05-26 06:07 | NUR ---
CALLED HOSPITALIST BRIAN REGARDING HTN 170/[address] ISABEL IS GOING TO REV CHART AND PUT IN A ORDER BUT IF HE DOES NOT PUT IN THE ORDER HE SAID TO GIVE SCHEDULED LISINOPRIL ORDERED.
[2024-05-26 06:14] LABS: BASOPHILS ABSOLUTE AUTO 0.03 K/mm3 (0.00-0.23); BASOPHILS PERCENT AUTO 0 % (0-2); EOSINOPHILS ABSOLUTE AUTO 0.21 K/mm3 (0.00-0.68); EOSINOPHILS PERCENT AUTO 1 % (0-6); Hematocrit 42.1 % (33.0-51.0); Hemoglobin 14.4 g/dL (11.5-16.0); IMMATURE GRAN ABSOLUTE AUTO 0.07 K/mm3 (0.00-0.10); IMMATURE GRAN PERCENT AUTO 0 % (0-1); LYMPHOCYTES ABSOLUTE AUTO 4.07 K/mm3 (0.84-5.20); LYMPHOCYTES PERCENT AUTO 24 % (21-46); MONOCYTES ABSOLUTE AUTO 1.23 K/mm3 (0.16-1.47); MONOCYTES PERCENT AUTO 7 % (4-13); Mean Corpuscular HGB 30.2 pg (26.0-34.0); Mean Corpuscular HGB Conc 34.2 g/dL (31.5-36.5); Mean Corpuscular Volume 88 fL (80-100); Mean Platelet Volume 10.5 fL (9.1-12.4); NEUTROPHILS ABSOLUTE AUTO 11.23 K/mm3 (1.96-9.15); NEUTROPHILS PERCENT AUTO 67 % (41-73); Platelet Count 322 K/mm3 (150-400); RDW Coefficient Variation 15.6 % (11.7-14.2); Red Blood Cell Count 4.77 M/mm3 (3.80-5.20); White Blood Cell Count 16.84 K/mm3 (4.00-11.30)
[2024-05-26 06:33] LABS: Bun/Creatinine Ratio 9.2 (12.0-20.0); Calcium, Blood 8.4 mg/dL (8.5-10.1); Creatinine, Blood 0.54 mg/dL (0.40-1.00); Potassium, Blood 3.8 mmol/L (3.5-5.5)
--- NOTE | 2024-05-26 06:38 | NUR ---
HOSPITALIST ORDER DUE TO HTN, THE HOSPITALIST HAS ORDERED HER LISINOPRIL 40 MG TO BE GIVEN EARLY. HOWEVER THE P[facility] IS NOT SHOWING THIS MEDICATION AVAILABLE. I HAVE CALLED PHARMACY AND THEY ARE TUBING IT TO US.
[2024-05-26 07:56] VITALS: BP 170/85
[2024-05-26] MEDS ORDERED: Potassium Phosphate Dibasic 15 MM in Dextrose 5% 250 ML IV STA (08:16)
[2024-05-26] MEDS ORDERED: LORazepam 2 MG/ML 1ML Injection IV ONE (08:35)
[2024-05-26] MEDS ORDERED: AmLODIPine Besylate 5 MG Tab PO SCH (09:00)
[2024-05-26] MEDS ORDERED: Lisinopril 20 MG Tab PO SCH (09:00)
[2024-05-26] MEDS ORDERED: Enoxaparin 40 MG/0.4 ML SYR SC SCH ×2 (09:00)
[2024-05-26] MEDS ORDERED: Hydroxychloroquine Sulfate 200 MG Tab PO SCH (09:00)
--- NOTE | 2024-05-26 14:54 | NUR ---
EKG OBTAINED AT 1130; CALLED AND NOTIFIED DR. HADDAD. TELE CALLED AT 1200 AND STATED THAT PATIENT REVERTED TO SINUS RATE 91. DR. HADDAD NOTIFIED.
[2024-05-26 15:10] VITALS: BP 180/83
--- NOTE | 2024-05-26 15:24 | NUR ---
NOTIFIED OF PATIENT'S AFTERNOON BLOOD PRESSURE; AWAITING NEW ORDERS
[2024-05-26] MEDS ORDERED: Labetalol HCL 5 MG/ML 4ML Injection (Single Dose) IV PRN (15:25)
[2024-05-26] MEDS ORDERED: Pantoprazole Sodium 40 MG Injection IV SCH (16:30)
[2024-05-26 16:40] VITALS: BP 127/66
--- NOTE | 2024-05-26 16:41 | NUR ---
RETURNED TO ROOM VIA WHEELCHAIR PTS AT BEDSIDE. PT DENIES ANY NEEDS AT THIS TIME
--- NOTE | 2024-05-26 16:53 | NUR ---
SHIFT SUMMARY: PT IS A&OX4-AT TIMES FORGETFUL AND IS IMPULSIVE; FORGETS TO CALL. PATIENT'S BAHMAN AT BEDSIDE AND HAS BEEN ASSISTING WITH HER CARE. PATIENT HAS BEEN NAUSEA, C/O CRAMPING ABDOMINAL PAIN ALL DAY AND VOMITING WITH SMALL PERIODS OF REST. PATIENT ISN'T HAVING MUCH ORAL INTAKE DUE TO NAUSEA AND WHEN VOMITING IT IS MOSTLY FOAMY LIQUID. PATIENT WENT DOWN FOR ABD CT; PENDING RESULTS. SHE IS CURRENTLY IN BED, RESTING, STILL SINUS AT 78 ON TELE, AT BEDSIDE, NO SIGNS OR SYMPTOMS OF DISTRESS, BLOOD PRESSURE IMPROVED AFTER IV LABETOLOL GIVEN. PLAN OF CARE ONGOING.
[2024-05-26 20:40] VITALS: BP 124/56
[2024-05-26] MEDS ORDERED: Enoxaparin 60 MG/0.6 ML SYR SC SCH (23:00)
[2024-05-27 04:03] VITALS: BP 156/57; BP 191/89
[2024-05-27 05:36] VITALS: BP 156/57
[2024-05-27] MEDS ORDERED: Pantoprazole Sodium 40 MG Tab PO SCH (06:00)
--- NOTE | 2024-05-27 06:19 | NUR ---
SHIFT SUMARY PT HAS RESTED IN BED T/O THE SHIFT. PT CONTINUES TO HAVE INTERMITTENT N/V, AND DRY HEAVES. ATIVAN HAS WORKED WELL FOR NAUSEA. PT TAKING IN ORAL FLUIDS. IVF INFUSING. PT HYPERTENSIVE, SBP 190 THIS AM. HOWEVER BP HAS TRENDED DOWN WITH REPEAT CHECK. PLAN OF CARE REMAINS UNCHANGED. BED IN LOWEST POSITION, CALL LIGHT WITIN REACH.
[2024-05-27 06:57] LABS: BASOPHILS ABSOLUTE AUTO 0.04 K/mm3 (0.00-0.23); BASOPHILS PERCENT AUTO 0 % (0-2); EOSINOPHILS ABSOLUTE AUTO 0.13 K/mm3 (0.00-0.68); EOSINOPHILS PERCENT AUTO 1 % (0-6); Hematocrit 40.8 % (33.0-51.0); Hemoglobin 13.7 g/dL (11.5-16.0); IMMATURE GRAN ABSOLUTE AUTO 0.06 K/mm3 (0.00-0.10); IMMATURE GRAN PERCENT AUTO 0 % (0-1); LYMPHOCYTES ABSOLUTE AUTO 2.87 K/mm3 (0.84-5.20); LYMPHOCYTES PERCENT AUTO 19 % (21-46); MONOCYTES ABSOLUTE AUTO 1.13 K/mm3 (0.16-1.47); MONOCYTES PERCENT AUTO 8 % (4-13); Mean Corpuscular HGB 29.5 pg (26.0-34.0); Mean Corpuscular HGB Conc 33.6 g/dL (31.5-36.5); Mean Corpuscular Volume 88 fL (80-100); Mean Platelet Volume 10.3 fL (9.1-12.4); NEUTROPHILS ABSOLUTE AUTO 10.58 K/mm3 (1.96-9.15); NEUTROPHILS PERCENT AUTO 71 % (41-73); Platelet Count 286 K/mm3 (150-400); RDW Standard Deviation 47.7 fL (35.1-46.3); Red Blood Cell Count 4.64 M/mm3 (3.80-5.20); White Blood Cell Count 14.81 K/mm3 (4.00-11.30)
[2024-05-27 07:09] VITALS: BP 195/93
[2024-05-27 07:21] LABS: Albumin, Blood 3.3 g/dL (3.4-5.0); Albumin/Globulin Ratio 0.9 (0.8-1.8); Bilirubin, Total 0.7 mg/dL (0.1-1.0); Bun/Creatinine Ratio 7.3 (12.0-20.0); Calcium, Blood 8.8 mg/dL (8.5-10.1); Creatinine, Blood 0.55 mg/dL (0.40-1.00); Globulin, Blood 3.6 g/dL (2.2-4.0); Phosphorus, Blood 2.3 mg/dL (2.5-4.9); Potassium, Blood 2.9 mmol/L (3.5-5.5); Total Protein, Blood 6.9 g/dL (6.4-8.2)
[2024-05-27] MEDS ORDERED: Potassium Phosphate Dibasic 20 MM in Dextrose 5% 500 ML IV STA (08:12)
[2024-05-27] MEDS ORDERED: Potassium Chl 20MEQ/Water100ML 100 ML IV SCH (13:00)
[2024-05-27 15:51] VITALS: BP 144/62
--- NOTE | 2024-05-27 18:24 | NUR ---
pt slept most of the day, spouce at bedside, no acute changes this shift, call light in reach.
[2024-05-27 20:14] VITALS: BP 154/80
[2024-05-27] MEDS ORDERED: TraZODone HCl 100 MG Tab PO ONE (23:15)
[2024-05-28] VITALS (24 sets, daily range): BP systolic 114–183; BP diastolic 61–109
--- NOTE | 2024-05-28 05:17 | NUR ---
Rn shift summary: Patient is alert and oriented. Patient was very nausiated at the beginning of the shift. She was having small emisis of clear liquids. Pt has been medicated with ativan 0.5mg x2 for nausia with improving relief. Pt states no emisis this am at this time. Pt has been up frequently to the BSC. Pt is able to get up independantly to the BSC. At the beginning of the shift she was having very small soft stools but they have stopped. Pt is voiding freq and 100cc at a time. Pt has diminished breath sounds to right lung. She is on room air. Pt did have 100mg of trazadone for sleep, rested fair, better this am. Call light in reach.
[2024-05-28 05:21] LABS: BASOPHILS ABSOLUTE AUTO 0.01 K/mm3 (0.00-0.23); BASOPHILS PERCENT AUTO 0 % (0-2); EOSINOPHILS ABSOLUTE AUTO 0.09 K/mm3 (0.00-0.68); EOSINOPHILS PERCENT AUTO 1 % (0-6); Hemoglobin 12.7 g/dL (11.5-16.0); IMMATURE GRAN ABSOLUTE AUTO 0.05 K/mm3 (0.00-0.10); IMMATURE GRAN PERCENT AUTO 0 % (0-1); LYMPHOCYTES ABSOLUTE AUTO 2.56 K/mm3 (0.84-5.20); LYMPHOCYTES PERCENT AUTO 20 % (21-46); MONOCYTES ABSOLUTE AUTO 1.24 K/mm3 (0.16-1.47); MONOCYTES PERCENT AUTO 9 % (4-13); Mean Corpuscular HGB Conc 34.3 g/dL (31.5-36.5); Mean Corpuscular Volume 88 fL (80-100); Mean Platelet Volume 10.2 fL (9.1-12.4); NEUTROPHILS ABSOLUTE AUTO 9.18 K/mm3 (1.96-9.15); NEUTROPHILS PERCENT AUTO 70 % (41-73); Platelet Count 251 K/mm3 (150-400); RDW Coefficient Variation 14.8 % (11.7-14.2); RDW Standard Deviation 46.6 fL (35.1-46.3); Red Blood Cell Count 4.23 M/mm3 (3.80-5.20); White Blood Cell Count 13.13 K/mm3 (4.00-11.30)
[2024-05-28 05:46] LABS: Bun/Creatinine Ratio 6.3 (12.0-20.0); Calcium, Blood 8.5 mg/dL (8.5-10.1); Creatinine, Blood 0.64 mg/dL (0.40-1.00); Magnesium, Blood 1.7 mg/dL (1.6-2.4); Phosphorus, Blood 3.1 mg/dL (2.5-4.9); Potassium, Blood 3.3 mmol/L (3.5-5.5)
[2024-05-28] MEDS ORDERED: Potassium Chloride 20 MEQ TabCR PO ONE (08:00)
[2024-05-28] MEDS ORDERED: Scopolamine Hydrobromide Patch TOP SCH (10:05)
[2024-05-28] MEDS ORDERED: NS 500 ML IV SCH (14:05)
--- NOTE | 2024-05-28 14:05 | NUR ---
PT TO SDS VIA [facility] FOR EGD WITH DR DOBBS. CHART REVIEWED. PLAN OF CARE DISCUSSED WITH PT; QUESTIONS ANSWERED. PT NPO FOR PROCEDURE.
[2024-05-28] MEDS ORDERED: propofoL 20 ML IV ONE (14:12)
[2024-05-28] MEDS ORDERED: Benzocaine Oral Spray 0.5ML UD ONE (14:15)
--- NOTE | 2024-05-28 14:16 | NUR ---
PT TO SDS WITH 20G IV TO HER RIGHT AC
[2024-05-28] MEDS ORDERED: Ondansetron HCl 2 MG / ML 2ML Vial ONE (14:19)
--- NOTE | 2024-05-28 14:26 | NUR ---
05/28/24 1426 Joselin Green CONFIRMED AND REVIEWED H&P, MEDCICATIONS, ALLERGIES, MEDICAL HISTORY, RESPIRATORY HISTORY, VITAL SIGNS, 3-LEAD EKG, CONSENTS, AND PHYSICIAN ORDERS. PATIENT CONFIRMS NPO STATUS AND AGREES WITH SCHEDULED PROCEDURE. MONITOR INTACT WITH CONTINUOUS PULSE OXIMETRY, CAPNOGRAPHY, 3-LEAD EKG, INTERMITTENT BP. SUPPLEMENTAL O2 TO BE TITRATED THROUGHOUT PROCEDURE TO MAINTAIN O2 SATURATION ABOVE 90%. PATIENT DETERMINED TO BE ASA APPROPRIATE FOR PROPOFOL SEDATION PRIOR TO START OF PROCEDURE BY .MALLAMPATI CLASS 2 AIRWAY: COMPLETE VISUALIZATION OF THE UVULA.ZOFRAN 4 MG IVP X 1 GIVEN PT VOMITED PRIOR TO PROCEDURE.
--- NOTE | 2024-05-28 16:50 | NUR ---
SHIFT NOTE: PT A/OX4 ABLE TO MAKE HER NEEDS KNOWN. SHE CONTINUES TO HAVE N/V AND SOFT STOOLS T/O SHIFT. PETRE NOTIFIED OF CONSULT AND PT HAD AN EDG THIS AFTERNOON. PT BP WAS ELEVATED AFTER PROCEDURE, MEDICATED PER MAR. PT CONTINUES TO ENDORSE NAUSEA POST POCEDURE. SHE IS ON TELE IN SINUS 70S WITH NO ACUTE EVENTS T/O SHIFT. SHE IS ON RA AND DENIES SOB. SHE IS A 1P AST TO THE BSC. , BAHMAN, HAS BEEN AT BEDSIDE T/O DAY. WILL CONTINUE TO MONITOR AND REPORT TO ONCOMING RN.
[2024-05-28] MEDS ORDERED: TraZODone HCl 100 MG Tab PO SCH (21:00)
[2024-05-29 05:14] VITALS: BP 152/78
--- NOTE | 2024-05-29 05:52 | NUR ---
NOC SUMMARY- PT HAD ONE EPISODE OF NAUSEA AND WAS TX PER SEP. PT WAS ABLE TO GO BACK TO SLEEP. NO OTHER ISSUES. PT RESTED QUIETLY THROUGHOUT SHIFT. PT TURNS SELF. PT UP TO VOID WITH SBA VIA BSC, CALL LIGHT IN REACH.
[2024-05-29 06:00] LABS: BASOPHILS ABSOLUTE AUTO 0.02 K/mm3 (0.00-0.23); BASOPHILS PERCENT AUTO 0 % (0-2); EOSINOPHILS ABSOLUTE AUTO 0.17 K/mm3 (0.00-0.68); EOSINOPHILS PERCENT AUTO 1 % (0-6); Hematocrit 37.2 % (33.0-51.0); Hemoglobin 12.6 g/dL (11.5-16.0); IMMATURE GRAN ABSOLUTE AUTO 0.05 K/mm3 (0.00-0.10); IMMATURE GRAN PERCENT AUTO 0 % (0-1); LYMPHOCYTES ABSOLUTE AUTO 2.52 K/mm3 (0.84-5.20); LYMPHOCYTES PERCENT AUTO 18 % (21-46); MONOCYTES ABSOLUTE AUTO 1.21 K/mm3 (0.16-1.47); MONOCYTES PERCENT AUTO 9 % (4-13); Mean Corpuscular HGB 29.7 pg (26.0-34.0); Mean Corpuscular HGB Conc 33.9 g/dL (31.5-36.5); Mean Corpuscular Volume 88 fL (80-100); Mean Platelet Volume 10.4 fL (9.1-12.4); NEUTROPHILS ABSOLUTE AUTO 10.17 K/mm3 (1.96-9.15); NEUTROPHILS PERCENT AUTO 72 % (41-73); Platelet Count 255 K/mm3 (150-400); RDW Coefficient Variation 14.7 % (11.7-14.2); RDW Standard Deviation 46.3 fL (35.1-46.3); Red Blood Cell Count 4.24 M/mm3 (3.80-5.20); White Blood Cell Count 14.14 K/mm3 (4.00-11.30)
[2024-05-29] MEDS ORDERED: Omeprazole 20 MG CapCR PO SCH (06:00)
[2024-05-29 06:30] LABS: Bun/Creatinine Ratio 5.7 (12.0-20.0); Calcium, Blood 8.3 mg/dL (8.5-10.1); Creatinine, Blood 0.52 mg/dL (0.40-1.00); Potassium, Blood 3.2 mmol/L (3.5-5.5)
[2024-05-29 07:09] VITALS: BP 137/78
--- NOTE | 2024-05-29 10:41 | NUR ---
NOTE ORDER RECEIVED TO ADVANCE DIET TOLERATED. PT ON A HEART HEALTHY DIET, AND ATE BREAKFAST THIS AM. PT HAD NO COMPLAINTS OF N/V. NO NEED TO ADVANCE DIET. PT TOLERATING HEART HEALTHY DIET WELL.
[2024-05-29 15:02] VITALS: BP 140/56
[2024-05-29] MEDS ORDERED: ELIQUIS5 M2 PO (16:55)
[2024-05-29] MEDS ORDERED: Prozac40 MG PO (16:55)
--- NOTE | 2024-05-29 17:57 | NUR ---
DISCHARGE SUMMARY: PT DISCHARGED HOME TODAY. PT EDUCATED ON DISCHARGE INSTRUCTIONS AND MEDICATIONS. EDUCATED ON A-FIB AND NEW MEDICATION ELIQUIS. DISCUSSED CONCERNS OF MARIJUANA USE. PT AND SPOUSE V/U. PT HAD NO N/V THROUGHOUT THE DAY AND TOLERATING ORAL INTAKE OF FOOD AND DRINKS. PT ESCORTED TO POV VIA WHEELCHAIR. BELONGINGS WITH PT.
[2024-06-02] MEDS ORDERED: METO25 PO (11:45)
== END 2024-05-29 17:38 | disposition home or self-care (01) ==
LOC: ER 05:45 → MEDS 05:46 → ERHOLD 05:46 → MEDS 05:47 → ERHOLD 16:24 → MEDS 16:24
PROVIDERS: Emergency Medicine; Internal Medicine Gastroenterology; Student in an Organized Health Care Education/Training Program; ADMIT Internal Medicine
PROC: 0DBA8ZX Excision of Jejunum, Via Natural or Artificial Opening Endoscopic, Diagnostic (ICD-10-PCS; principal; 2024-05-28 14:15)
PROC: 0DB98ZX Excision of Duodenum, Via Natural or Artificial Opening Endoscopic, Diagnostic (ICD-10-PCS; principal; 2024-05-28 14:15)
PROC: 0DB68ZX Excision of Stomach, Via Natural or Artificial Opening Endoscopic, Diagnostic (ICD-10-PCS; principal; 2024-05-28 14:15)
DX: K22.89 Other specified disease of esophagus (principal); K22.2 Esophageal obstruction; F12.99 Cannabis use, unspecified with unspecified cannabis-induced disorder; D13.2 Benign neoplasm of duodenum; J84.9 Interstitial pulmonary disease, unspecified; E03.9 Hypothyroidism, unspecified; I10 Essential (primary) hypertension; F32.A Depression, unspecified; E78.5 Hyperlipidemia, unspecified; J44.9 Chronic obstructive pulmonary disease, unspecified; Z88.8 Allergy status to other drugs, medicaments and biological substances
CPT/HCPCS: 36415; 71046; 74177; 80048; 80053; 81001; 82330; 82803; 83690; 83735; 84100; 84484; 85025; 87507; 88305; 88342; 93005; 93010; 96365; 96366; 96367; 96372; 96375; 96376; 99285-25; A9270; G0378; J0612; J1650; J2060; J2405; J2470; J2704; J3475; J3480; J7040; J7042; J7060; Q9967